=== PATIENT | male | born 1970 | race Caucasian/White ===

== ENCOUNTER → 2020-07-15 09:06 | Outpatient (REF) | payer OTHER, SELFPAY ==
[2020-07-15 22:24] LABS: HCT 44.3 % (40.0-50.0); MCH 30.4 pg (27.0-33.0); MCHC 33.9 % (32.0-36.0); MCV 89.9 fL (80-95); MPV 11.9 fL (8.0-11.0); Platelet Count 272 10^3/uL (130-400); RBC 4.93 10^6/uL (4.36-5.78); RDW 12.6 % (11.8-14.1); RDW-SD 41.3 fL; WBC 4.06 10^3/uL (4.4-10.8)
[2020-07-15 22:56] LABS: ALT 34 U/L (16-63); AST 19 U/L (15-37); Alkaline Phosphatase 55 U/L (46-116); Anion Gap 8.4 mmol/L (3-11); BUN 14 mg/dL (7-18); Bilirubin, Total 0.4 mg/dL (0.2-1.0); CO2 26.6 mmol/L (21.0-32.0); CREATININE 0.78 mg/dL (0.70-1.30); Calculated LDL 139 mg/dL (<100); Chloride 107 mmol/L (98-107); Cholesterol 206 mg/dL (<200); Glucose 107 mg/dL (74-106); HDL Cholesterol 53 mg/dL (40-60); Potassium 4.5 mmol/L (3.5-5.1); Sodium 142 mmol/L (136-145); TSH (W/Ref FT4) 1.25 uIU/mL (0.36-3.74); Triglyceride 72 mg/dL (<150)
[2020-07-16 04:33] LABS: Vitamin D 25 Total 65.6 ng/ml (30-100)
== END ==
LOC: NCHCN 09:06
PROVIDERS: Visit Provider Nurse Practitioner Community Health
DX: R63.5 Abnormal weight gain (principal); R10.32 Left lower quadrant pain; Z86.39 Personal history of other endocrine, nutritional and metabolic disease; Z13.220 Encounter for screening for lipoid disorders
CPT/HCPCS: 80053; 80061; 82306; 85027; 84443

== ENCOUNTER → 2020-08-12 16:03 | Outpatient (REF) | payer OTHER, SELFPAY ==
[2020-08-12 21:59] LABS: Abs Immature Grans 0.02 10^3/uL (0.0-0.06); Absolute Basophil Count 0.04 10^3/uL (0.0-0.2); Absolute Eosinophil Count 0.13 10^3/uL (0.0-0.7); Absolute Lymphocyte Count 1.62 10^3/uL (1.2-3.4); Absolute Monocyte Count 0.63 10^3/uL (0.1-0.8); Absolute Neutrophil Count 2.73 10^3/uL (1.2-6.7); Basophils % 0.8; Eosinophils % 2.5; HCT 46.6 % (40.0-50.0); HGB 15.6 g/dL (13.5-17.5); Immature Grans % 0.4; Lymphocytes % 31.3; MCH 30.5 pg (27.0-33.0); MCHC 33.5 % (32.0-36.0); Monocytes % 12.2; Neutrophils % 52.8; Nucleated RBC 0 %; Platelet Count 296 10^3/uL (130-400); RBC 5.12 10^6/uL (4.36-5.78); RDW 12.4 % (11.8-14.1); RDW-SD 41.6 fL; WBC 5.17 10^3/uL (4.4-10.8)
== END ==
LOC: NCHCN 16:03
PROVIDERS: PCP Nurse Practitioner Community Health; Visit Provider Nurse Practitioner Community Health
DX: D72.819 Decreased white blood cell count, unspecified (principal)
CPT/HCPCS: 85025

== ENCOUNTER 2023-11-14 14:11 | Outpatient (REF) | payer OTHER, SELFPAY ==
[2023-11-14 22:26] LABS: ALT 38 U/L (16-63); AST 20 U/L (15-37); Albumin 3.7 g/dL (3.4-5.0); Alkaline Phosphatase 52 U/L (46-116); Anion Gap 8.1 mmol/L (3-11); BUN 24 mg/dL (7-18); Bilirubin, Total 0.3 mg/dL (0.2-1.0); CO2 25.9 mmol/L (21.0-32.0); CREATININE 0.9 mg/dL (0.70-1.30); Calcium 8.9 mg/dL (8.5-10.1); Calculated LDL 135 mg/dL (<100); Chloride 104 mmol/L (98-107); Cholesterol 227 mg/dL (<200); Estimated GFR 100.86 (mL/min/1.73m2); Glucose 90 mg/dL (74-106); HDL Cholesterol 51 mg/dL (40-60); Potassium 4.1 mmol/L (3.5-5.1); Sodium 138 mmol/L (136-145); Total Protein 7.4 g/dL (6.4-8.2); Triglyceride 205 mg/dL (<150)
[2023-11-15 19:07] LABS: PSA, Screening 0.8 ng/mL (<=3.5)
== END 2023-11-14 14:12 | disposition home or self-care (01) ==
LOC: NCHCN 14:11
PROVIDERS: PCP Nurse Practitioner Community Health; Visit Provider Nurse Practitioner Family
DX: Z00.00 Encounter for general adult medical examination without abnormal findings (principal); Z13.220 Encounter for screening for lipoid disorders; Z13.228 Encounter for screening for other metabolic disorders; Z12.5 Encounter for screening for malignant neoplasm of prostate
CPT/HCPCS: 80053; 80061; 84153